=== PATIENT | male | born 1960 | race Caucasian/White ===

== ENCOUNTER 2017-01-03 21:50 | Emergency (ER) | payer BC, OTHER ==
[2017-01-03 22:13] VITALS: BP 139/98
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
== END 2017-01-03 22:48 | disposition home or self-care (01) ==
LOC: JP.ED 21:50
DX: S39.012A Strain of muscle, fascia and tendon of lower back, initial encounter (principal); S80.10XA Contusion of unspecified lower leg, initial encounter; I48.91 Unspecified atrial fibrillation; K21.9 Gastro-esophageal reflux disease without esophagitis; F32.9 Major depressive disorder, single episode, unspecified; Z98.890 Other specified postprocedural states; Z96.643 Presence of artificial hip joint, bilateral; Z79.899 Other long term (current) drug therapy; Z91.013 Allergy to seafood; W22.8XXA Striking against or struck by other objects, initial encounter
CPT/HCPCS: 99283

== ENCOUNTER 2017-03-04 08:42 | Emergency (ER) | payer BC ==
[2017-03-04 09:10] VITALS: BP 131/82
[2017-03-04] MEDS ORDERED: Cyclobenzaprine 10 MG Tab PO ONE (09:44)
[2017-03-04] MEDS ORDERED: Ketorolac 60 MG/2 ML SDV IM ONE (09:44)
[2017-03-04] MEDS ORDERED: Acetaminophen/oxyCODONE 325-5 MG Tab PO ONE (09:45)
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
[2017-03-04] MEDS ORDERED: Gadoteridol 279.3 MG/ML 20 ML SDV IV SCH (12:15)
--- NOTE | 2017-03-04 13:21 | MR ---
MRI lumbar spine with and without contrast. Comparison: 03/05/2016. Indication: Severe low back pain 5 lumbar type vertebral bodies. Pedicle screws and rods L4-S1. Artif icial interspace L4-5 and L5-S1. L1-2: Mild diffuse disc protrusion with a radial tear most evident left paracentrally has increased. Moderate left lateral recess narrowing. Mild canal stenosis. Mild bilateral foraminal narrowing. L2-3: Diffuse disc protrusion with radial tear has increased in the interval. Mild canal stenosis. Mi ld lateral recess narrowing right greater than left. Moderate bilateral foraminal narrowing. L3-4: Right hemilaminectomy. Minimal disc protrusion. No canal stenosis. Moderate bilateral foraminal narrowing. Extruded disc fragment is no longer visualized. L4-5: Left-sided hemilaminectomy. No left-sided foraminal narrowing. Mild right-sided foraminal narro wing. No canal stenosis. L5-S1: Postsurgical change. No canal stenosis. Mild left-sided foraminal narrowing. No right-sided fo raminal narrowing. Impression: 1. Mild diffuse disc protrusion with radial tear L1-2. Moderate left lateral recess narrowing. Mild s rupinder canal stenosis. 2. Diffuse disc protrusion with radial tear has increased in the interval L2-3. Mild canal stenosis. Mild lateral recess narrowing right greater than left. 3. Moderate bilateral foraminal narrowing L2-3 and L3-4.
== END 2017-03-04 14:04 | disposition home or self-care (01) ==
LOC: JP.ED 08:42
DX: M51.36 Other intervertebral disc degeneration, lumbar region (principal); I48.91 Unspecified atrial fibrillation; Z91.013 Allergy to seafood; Z79.899 Other long term (current) drug therapy; Z98.890 Other specified postprocedural states
CPT/HCPCS: 72158; 96372; 99284; A9270; A9576; J1885

== ENCOUNTER 2020-01-22 19:12 | Emergency (ER) | payer BC, OTHER ==
--- NOTE | 2020-01-22 20:10 | EDM.PDOC ---
ED HPI GENERAL MEDICAL PROBLEM - General Chief Complaint: Genitourinary Problem Stated Complaint: PASSING BLOOD Time Seen by Provider: 01/22/20 20:10 Source of Information: Reports: Patient History Limitations: Reports: No Limitations - History of Present Illness INITIAL COMMENTS - FREE TEXT/NARRATIVE: pt has the urge to void and feels unconmfortabe. He noted this pm that he was passing blood. Onset: Today Duration: Hour(s):, Getting Worse Location: Reports: Abdomen, Back, Generalized, Other (pt hurt all over yesterday, ) Associated Symptoms: Reports: Other (pt did have some chilling. ) - Related Data Allergies Allergy/AdvReac Type Severity Reaction Status Date / Time fish oil Allergy Rash Verified 01/22/20 19:31 Home Meds: Home Meds Cholecalciferol (Vitamin D3) [Vitamin D3] 2,000 unit PO BID 03/21/13 [History] Desvenlafaxine Succinate [Pristiq] 50 mg PO BID 03/21/13 [History] Lisinopril 10 mg PO DAILY 03/21/13 [History] Pantoprazole Sodium 40 mg PO DAILY 03/21/13 [History] Vitamin B Complex 1 tab PO DAILY 03/21/13 [History] Metoprolol Tartrate 50 mg PO BID 03/05/16 [History] Gabapentin [Neurontin] 900 mg PO QID 01/03/17 [History] traMADol HCl [Tramadol HCl] 2 tab PO TID 03/04/17 [History] Past Medical History HEENT History: Reports: Allergic Rhinitis Cardiovascular History: Reports: Afib Gastrointestinal History: Reports: GERD, Hiatal Hernia Musculoskeletal History: Reports: Back Pain, Chronic, Fibromyalgia Psychiatric History: Reports: Depression - Infectious Disease History Infectious Disease History: Reports: Chicken Pox - Past Surgical History GI Surgical History: Reports: Hernia Repair/Other Neurological Surgical History: Reports: Lumbar Spine Musculoskeletal Surgical History: Reports: Arthroscopic Knee, Hip Replacement, Other (See Below) Other Musculoskeletal Surgeries/Procedures:: Back surgery Feb 2016 Social & Family History - Family History Family Medical History: Noncontributory Musculoskeletal: Reports: Arthritis, Back pain, Chronic, Fibromyalgia, Osteoarthritis Endocrine/Metabolic: Reports: Diabetes, type II Oncologic: Reports: Colon - Tobacco Use Smoking Status *Q: Never Smoker - Caffeine Use Caffeine Use: Reports: Soda - Recreational Drug Use Recreational Drug Use: No ED ROS GENERAL - Review of Systems Review Of Systems: See Below Constitutional: Reports: Chills, Malaise HEENT: Reports: No Symptoms Respiratory: Reports: No Symptoms Cardiovascular: Reports: No Symptoms Endocrine: Reports: No Symptoms GI/Abdominal: Reports: Other (pt is passing very bloody urine) : Reports: Hematuria, Urgency Musculoskeletal: Reports: No Symptoms Skin: Reports: No Symptoms Neurological: Reports: No Symptoms ED EXAM, RENAL/ - Physical Exam Exam: See Below Text/Narrative:: pt arrived with a history of passing blood per urethra starting today. He has the uncomfortable urge that he has to go all of the time. He was not able to work [employer]. @ 2 days ago he did do a fair about of labor and he huirt all over after that. Exam Limited By: No Limitations General Appearance: Alert, Anxious, Moderate Distress Ears: Normal TMs Nose: Normal Inspection Throat/Mouth: Normal Inspection Head: Atraumatic Neck: Normal Inspection Respiratory/Chest: No Respiratory Distress Cardiovascular: Regular Rate, Rhythm GI/Abdominal: Soft, Non-Tender (Male) Exam: Other (pt id not have any irritation of the penis. ) Rectal (Males) Exam: Deferred Back Exam: Normal Inspection Extremities: Normal Inspection Neurological: Alert, Oriented, Normal Cognition Course - Vital Signs Last Recorded V/S: Last Vital Signs Temp 35.1 C L 01/22/20 19:33 Pulse 80 01/22/20 21:10 Resp 16 01/22/20 21:10 BP 130/80 01/22/20 21:10 Pulse Ox 96 01/22/20 21:10 - Orders/Labs/Meds Orders: Active Orders 24 hr Category Date Time Status Bladder Scan [RC] ASDIRECTED Care 01/22/20 20:25 Active CULTURE URINE [RM] Stat Lab 01/22/20 22:11 Received Sodium Chloride 0.9% [Normal Saline] 1,000 ml Med 01/22/20 20:45 Active IV ASDIRECTED Medication Orders Sodium Chloride (Normal Saline) 1,000 mls @ 999 mls/hr IV ASDIRECTED AUDRA Last Admin: 01/22/20 21:05 Dose: 999 mls/hr Documented by: SHANE Labs: Laboratory Tests 10/05/20 10/05/20 10/05/20 Range/Units 20:09 20:25 20:25 WBC 5.9 (4.5-11.0) K/uL RBC 4.28 L (4.30-5.90) M/uL Hgb 13.0 (12.0-15.0) g/dL Hct 39.0 L (40.0-54.0) % MCV 91 (80-98) fL MCH 30 (27-31) pg MCHC 33 (32-36) % Plt Count 125 L (150-400) K/uL Neut % (Auto) 65 (36-66) % Lymph % (Auto) 19 L (24-44) % [place] % (Auto) 11 H (2-6) % Eos % (Auto) 5 H (2-4) % Baso % (Auto) 0 (0-1) % Sodium 141 (140-148) mmol/L Potassium 3.4 L (3.6-5.2) mmol/L Chloride 104 (100-108) mmol/L Carbon Dioxide 30 (21-32) mmol/L Anion Gap 10.4 (5.0-14.0) mmol/L BUN 19 H (7-18) mg/dL Creatinine 1.1 (0.8-1.3) mg/dL Est Cr Clr Drug Dosing 82.72 mL/min Estimated GFR (MDRD) > 60 (>60) Glucose 103 (74-106) mg/dL Calcium 8.7 (8.5-10.1) mg/dL Total Bilirubin 0.6 (0.2-1.0) mg/dL AST 20 (15-37) U/L ALT 34 (12-78) U/L Alkaline Phosphatase 78 (46-116) U/L Total Protein 6.9 (6.4-8.2) g/dL Albumin 3.3 L (3.4-5.0) g/dL Globulin 3.6 H (2.3-3.5) g/dL Albumin/Globulin Ratio 0.9 L (1.2-2.2) Urine Color Brown A (YELLOW) Urine Appearance Cloudy A (CLEAR) Urine pH 6.0 (5.0-8.0) Ur Specific [place] >= 1.030 (1.008-1.030) Urine Protein >=300 H (NEGATIVE) mg/dL Urine Glucose (UA) Negative (NEGATIVE) mg/dL Urine Ketones Trace H (NEGATIVE) mg/dL Urine Occult Blood Large (NEGATIVE) Urine Nitrite Negative (NEGATIVE) Urine Bilirubin Moderate (NEGATIVE) Urine Urobilinogen >=8.0 H (0.2-1.0) EU/dL Ur Leukocyte Esterase Small (NEGATIVE) Urine RBC Packed H (0-5) Urine WBC 0-5 (0-5) Ur Epithelial Cells Not seen Amorphous Sediment Many Urine Bacteria Rare Urine Mucus Not seen Meds: Medications Generic Name Dose Route Start Last Admin Trade Name Freq PRN Reason Stop Dose Admin Sodium Chloride 1,000 mls @ 999 mls/hr 01/22/20 20:45 01/22/20 21:05 Normal Saline IV 999 mls/hr ASDIRECTED AUDRA Administration Discontinued Medications Generic Name Dose Route Start Last Admin Trade Name Freq PRN Reason Stop Dose Admin Ciprofloxacin 500 mg 01/22/20 22:07 Ciprofloxacin Hcl PO 01/22/20 22:08 ONETIME ONE - Re-Assessments/Exams Free Text/Narrative Re-Assessment/Exam: 01/22/20 22:15 pt had a urine which showed alot of rbcs but did not have alot of wbcs or bacteria. A culture was set up. He had a cat scan of the abdoman pelvis without contrast which did not have acute findings. He was feeling better after he had some fluid. He did have a large prostate on the cat scan. Departure - Departure Time of Disposition: 22:09 Disposition: Home, Self-Care 01 Condition: Fair Clinical Impression: Hematuria, Enlarged prostate - Discharge Information Instructions: Hematuria, Adult Referrals: PCP,None [Primary Care Provider] - Forms: ED Department Discharge Care Plan Goals: push fluids, continue same meds, cipro 500mg twice a day for 3 days, will notify of urine culture. return here or see Dr Elizondo in [facility] if hematuria continues. Sepsis Event Note (ED) - Evaluation Sepsis Screening Result: No Definite Risk - Focused Exam Vital Signs: Vital Signs Temp Pulse Resp BP Pulse Ox 01/22/20 21:10 80 16 130/80 96 01/22/20 19:33 35.1 C L 86 18 136/86 95 01/22/20 19:31 18 95 - My Orders Last 24 Hours: My Active Orders 01/22/20 20:25 Bladder Scan [RC] ASDIRECTED 01/22/20 20:45 Sodium Chloride 0.9% [Normal Saline] 1,000 ml IV ASDIRECTED 01/22/20 22:11 CULTURE URINE [RM] Stat - Assessment/Plan Last 24 Hours: My Active Orders 01/22/20 20:25 Bladder Scan [RC] ASDIRECTED 01/22/20 20:45 Sodium Chloride 0.9% [Normal Saline] 1,000 ml IV ASDIRECTED 01/22/20 22:11 CULTURE URINE [RM] Stat
[2020-01-22] MEDS ORDERED: Sodium Chloride 0.9% 1,000 ML IV SCH (20:45)
[2020-01-22 21:10] VITALS: BP 130/80; PULSE 80
--- NOTE | 2020-01-22 21:56 | CRLCT ---
Indication: Blood in urine Technique: Noncontrast CT abdomen and pelvis. Comparison: No comparison studies are available. Findings: Heart size is normal. Mild basilar atelectasis. No effusion. Splenic granulomas. Adrenal glands are unremarkable. Gallbladder is unremarkable. Low-density lesion left hepatic lobe incompletely assessed could represent a cyst. Pancreas is unremarkable. No renal calculi. No hydronephrosis. Diverticulosis. Bowel is unremarkable. Fat containing umbilical hernia. Urinary bladder decompressed and unremarkable. Postsurgical changes of right hip causes significant streak artifact. Enlarged prostate gland. Fat containing inguinal hernias. Postsurgical changes lumbar spine. Impression: 1. No acute findings in abdomen pelvis urinary tract appears unremarkable. 2. Enlarged prostate gland. Please note that all CT scans at this facility use dose modulation, iterative reconstruction, and/or weight-based dosing when appropriate to reduce radiation dose to as low as reasonably achievable. Dictated by Diana Savage MD @ Jan 22 2020 9:48PM Signed by Dr. Diana Savage @ Jan 22 2020 9:54PM
[2020-01-22] MEDS ORDERED: Ciprofloxacin 500 MG Tab PO ONE (22:07)
== END 2020-01-22 22:21 | disposition home or self-care (01) ==
LOC: JP.ED 19:12
DX: N40.0 Benign prostatic hyperplasia without lower urinary tract symptoms (principal); R31.9 Hematuria, unspecified; I48.91 Unspecified atrial fibrillation; K21.9 Gastro-esophageal reflux disease without esophagitis; F32.9 Major depressive disorder, single episode, unspecified; Z79.899 Other long term (current) drug therapy; Z91.013 Allergy to seafood
CPT/HCPCS: 36415; 74176; 80053; 81001; 85025; 87086; 87088; 87186; 96360; 99283; 99284-25; A9270-GY; J7030